=== PATIENT | male | born 1985 | race Two or more races ===

== ENCOUNTER 2024-08-30 07:20 | Day surgery (SDC) | payer BC, SELFPAY ==
--- NOTE | 2024-08-24 08:33 | EKG_ITS ---
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
[2024-08-24 08:37] LABS: INR 1.0 (0.9-1.3); Partial Thromboplastin Time 29.7 Seconds (22.0-36.0); Prothrombin Time 11.0 Seconds (9.0-12.2)
[2024-08-24 08:42] LABS: Alanine Aminotransferase 26 U/L (10-49); Albumin, Serum 4.1 gm/dL (3.5-5.0); Albumin/Globulin Ratio 1.3 (1.2-2.2); Alkaline Phosphatase 111 U/L (46-116); Anion Gap 8 (7-16); Aspartate Amino Transferase 25 U/L (0-34); BUN/Creatinine Ratio 12 Ratio (12-20); Bilirubin,Total 0.8 mg/dL (0.3-1.2); Blood Urea Nitrogen 16 mg/dL (9-23); Calcium 9.3 mg/dL (8.3-10.6); Calcium (Corrected) 9.3 mg/dL (8.5-10.1); Carbon Dioxide 27.3 mMol/L (20.0-31.0); Chloride 106 mMol/L (98-107); Creatinine (Component) 1.3 mg/dL (0.6-1.3); Globulin 3.2 gm/dL (2.3-3.5); Glucose 99 mg/dL (74-106); Osmolality,Calculated 282 (275-295); Potassium 4.0 mMol/L (3.4-5.1); Sodium 141 mMol/L (136-145); Total Protein 7.3 gm/dL (5.7-8.2); eGFR > 60 See Note
[2024-08-30 07:46] VITALS: BP 137/87; PULSE 77; RESP 14; TEMP 36.2; O2SAT 99; BMI 29.8
[2024-08-30 08:55] VITALS: BP 127/84; PULSE 86; PULSE 87; RESP 20; O2SAT 97
[2024-08-30] MEDS: BENZOCAINE 20% (Hurricaine) SPRAY 1 DOSE TOP (09:00)
[2024-08-30] MEDS: RINGERS LACTATED 1000 ML 1,000 ML 20 ML IV (09:00)
[2024-08-30 09:10] VITALS: BP 129/96; PULSE 97; RESP 15; TEMP 36.6; O2SAT 97
[2024-08-30 09:20] VITALS: BP 126/73; PULSE 74; RESP 19; O2SAT 97
[2024-08-30 09:30] VITALS: BP 121/83; PULSE 69; RESP 18; O2SAT 97
[2024-08-30 09:40] VITALS: BP 128/85; PULSE 69; RESP 17; TEMP 36.6; O2SAT 97
== END 2024-08-30 09:45 | disposition home or self-care (01) ==
PROVIDERS: PCP Nurse Practitioner Family; Referring Provider Specialist; Visit Provider Specialist
PROC: (CPT 43239; principal; 2024-08-30 12:15)
DX: K20.90 Esophagitis, unspecified without bleeding (principal); Z01.810 Encounter for preprocedural cardiovascular examination; K29.50 Unspecified chronic gastritis without bleeding
CPT/HCPCS: 43239; 36415; 80053; 85610; 85730; 93005; J7120; A9270